=== PATIENT | female | born 1980 | race African-American/Black ===

== ENCOUNTER 2018-04-18 08:57 | Emergency (ER) | payer SELFPAY ==
[2018-04-18] MEDS ORDERED: METHYLPREDNISOLONE 125 MG INJ ONE (09:36)
[2018-04-18] MEDS ORDERED: LEVALBUTEROL 1.25 MG/3 ML NEB ONE (09:37)
--- NOTE | 2018-04-18 10:26 | ER ---
Nurse's Notes [facility] Name: Elena Bustamante Age: 37 yrs Sex: Female : 1980 Arrival Date: 04/18/2018 Time: 09:02 Bed 27 Private MD: Out, [facility] Diagnosis: Asthma Presentation: 04/18 09:14 Presenting complaint: Patient states: asthma exacerbation that began 15 minutes ago ss while at work. Pt reports all of her asthma medications were left at home as she got a new purse and had not transferred them over. Pt states, "I just need a breathing treatment, then I can go back to work.". Transition of care: patient was not received from another setting of care. Onset of symptoms was April 18, 2018. Risk Assessment: Do you want to hurt yourself or someone else? Patient reports no desire to harm self or others. Initial Sepsis Screen: Does the patient meet any 2 criteria? No. Patient's initial sepsis screen is negative. Does the patient have a suspected source of infection? No. Patient's initial sepsis screen is negative. Care prior to arrival: None. 09:14 Method Of Arrival: Ambulatory ss 09:14 Acuity: GREGORY 4 ss Historical: - Allergies: 09:20 Vicodin; ss 09:20 Iodine; ss - Home Meds: 09:20 Meclizine Oral [Active]; Amoxicillin-Pot Clavulanate Oral [Active]; ProAir [Active]; ss Albuterol Nebulizer [Active]; - PMHx: 09:20 Asthma; vertigo; ss - PSHx: 09:20 c section; Tonsillectomy; Adenoids; Tubal ligation; ss - Immunization history:: Adult Immunizations up to date. - Social history:: Smoking status: Patient/guardian denies using tobacco. - Ebola Screening: : Patient denies exposure to infectious person Patient denies travel to an Ebola-affected area in the 21 days before illness onset. - Family history:: not pertinent. - Hospitalizations: : No recent hospitalization is reported. Screenin:14 Abuse screen: Denies threats or abuse. Denies injuries from another. Nutritional ss screening: No deficits noted. Tuberculosis screening: No symptoms or risk factors identified. Never had TB. Fall Risk None identified. Assessment: 09:14 General: Appears in no apparent distress. comfortable, Behavior is calm, cooperative. ss Pain: Denies pain. Neuro: Level of Consciousness is awake, alert, obeys commands, Oriented to person, place, time, situation. Cardiovascular: Heart tones S1 S2 present Capillary refill < 3 seconds is brisk in bilateral fingers Chest pain is denied. Respiratory: Breath sounds are diminished in left posterior lower lobe and right posterior lower lobe Breath sounds with wheezes in right upper lobe and left upper lobe. Respiratory: Reports cough that is non-productive, hacking, persistent since 15 minutes prior to arrival. GI: Patient currently denies abdominal pain, diarrhea, nausea, vomiting. EENT: Nares are clear Oral mucosa is moist. Throat is clear. Derm: Skin is intact, is healthy with good turgor, Skin is dry, Skin is pink, warm \\T\\ dry. normal. Musculoskeletal: Circulation, motion, and sensation intact. Range of motion: intact in all extremities, Swelling absent. 10:24 Reassessment: Patient appears in no apparent distress at this time. Patient and/or ch family updated on plan of care and expected duration. Pain level reassessed. Patient is alert, oriented x 3, equal unlabored respirations, skin warm/dry/pink. Patient states feeling better. Patient states symptoms have improved. General: Appears in no apparent distress. comfortable, Behavior is calm, cooperative, appropriate for age. Respiratory: Airway is patent Respiratory effort is even, unlabored, Breath sounds are clear bilaterally. Vital Signs: 09:20 BP 124 / 95; Pulse 84; Resp 18; Temp 98.9(O); Pulse Ox 100% on R/A; Weight 102.97 kg; Height 5 ft. 6 in. (167.64 cm); Pain 0/10; 10:24 BP 113 / 82; Pulse 78; Resp 14; Temp 98.1; Pulse Ox 100% on R/A; Pain 0/10; ch 09:20 Body Mass Index 36.64 (102.97 kg, 167.64 cm) ED Course: 09:02 Patient arrived in ED. sb2 09:04 Out, of Town is Private Physician. sb2 09:10 Pato Agee MD is Attending Physician. rn 09:14 Patient has correct armband on for positive identification. Bed in low position. Call light in reach. 09:16 Triage completed. ss 09:20 Arm band placed on right wrist. ss 09:36 Domitila Green, RN is Primary Nurse. ss 09:59 EKG done, by electronic warfare technician. reviewed by Pato Agee MD. [facility] 10:21 Primary Nurse role handed off by Domitila Green RN 10:21 Sadie Ortiz, RN is Primary Nurse. 10:37 No provider procedures requiring assistance completed. Patient did not have IV access ss during this emergency room visit. Administered Medications: 09:17 CANCELLED (Duplicate Order): predniSONE 60 mg PO once rn 09:37 Drug: Xopenex (3) 1.25 mg Route: Inhalation; ss 10:25 Follow up: Response: No adverse reaction; Marked relief of symptoms 09:37 Drug: SOLU-Medrol 125 mg Route: IM; Site: right deltoid; ss 10:25 Follow up: Response: No adverse reaction; Marked relief of symptoms Outcome: 10:25 Discharge ordered by . rn 10:37 Discharged to home ambulatory. 10:37 Condition: good 10:37 Discharge instructions given to patient, Instructed on discharge instructions, follow up and referral plans. medication usage, Demonstrated understanding of instructions, follow-up care, medications, Prescriptions given X 1. 10:39 Patient left the ED. ss Signatures: Sadie Ortiz, RUBY BELTRAN Pato Agee MD MD rn Smirch, Shelby, RN RN Whitley Estrada, medical claims assistant EKG Tat1 Shannan Marin sb2
--- NOTE | 2018-04-18 10:26 | EDPHYS ---
Physician Documentation [facility] Name: Elena Bustamante Age: 37 yrs Sex: Female : 1980 Arrival Date: 04/18/2018 Time: 09:02 Bed 27 Private MD: Out, [facility] ED Physician Pato Agee HPI: 04/18 09:25 This 37 yrs old Black Female presents to ER via Ambulatory with complaints of Asthma rn Exacerbation. 09:25 The patient presents to the emergency department with wheezing, the patient was rn reported to have chest congestion, chest tightness, non-productive cough, productive cough. Onset: The symptoms/episode began/occurred 1 week(s) ago. Modifying factors: The symptoms are alleviated by inhaler, the symptoms are aggravated by nothing. Severity of symptoms: At their worst the symptoms were mild in the emergency department the symptoms are unchanged. The patient has experienced similar episodes in the past. Reports recently seen by physician, finished her steroids, still coughing, forgot her inhaler today, came to work, feels chest tightness and reports this is how her asthma feels, + wheezing. . Historical: - Allergies: 09:20 Vicodin; ss 09:20 Iodine; ss - Home Meds: 09:20 Meclizine Oral [Active]; Amoxicillin-Pot Clavulanate Oral [Active]; ProAir [Active]; ss Albuterol Nebulizer [Active]; - PMHx: 09:20 Asthma; vertigo; ss - PSHx: 09:20 c section; Tonsillectomy; Adenoids; Tubal ligation; ss - Immunization history:: Adult Immunizations up to date. - Social history:: Smoking status: Patient/guardian denies using tobacco. - Ebola Screening: : Patient denies exposure to infectious person Patient denies travel to an Ebola-affected area in the 21 days before illness onset. - Family history:: not pertinent. - Hospitalizations: : No recent hospitalization is reported. ROS: 09:25 Constitutional: Negative for fever, chills, and weight loss, Eyes: Negative for injury, rn pain, redness, and discharge, Cardiovascular: Negative for chest pain, palpitations, and edema, Respiratory: Negative for pleuritic chest pain Abdomen/GI: Negative for abdominal pain, nausea, vomiting, diarrhea, and constipation, MS/Extremity: Negative for injury and deformity, Skin: Negative for injury, rash, and discoloration, Neuro: Negative for headache, weakness, numbness, tingling, and seizure. Exam: 09:25 Constitutional: This is a well developed, well nourished patient who is awake, alert, rn + persistent coughing ENT: MMM, no stridor Cardiovascular: Regular rate and rhythm with a normal S1 and S2. No gallops, murmurs, or rubs. No JVD. No pulse deficits. Respiratory: + mild tachypnea with central wheezing with cough, no retractions Skin: Warm, dry with normal turgor. Normal color with no rashes, no lesions, and no evidence of cellulitis. Neuro: Awake and alert, GCS 15, oriented to person, place, time, and situation. Cranial nerves II-XII grossly intact. Motor strength 5/5 in all extremities. Sensory grossly intact. Cerebellar exam normal. Normal gait. Vital Signs: 09:20 BP 124 / 95; Pulse 84; Resp 18; Temp 98.9(O); Pulse Ox 100% on R/A; Weight 102.97 kg; ss Height 5 ft. 6 in. (167.64 cm); Pain 0/10; 10:24 BP 113 / 82; Pulse 78; Resp 14; Temp 98.1; Pulse Ox 100% on R/A; Pain 0/10; ch 09:20 Body Mass Index 36.64 (102.97 kg, 167.64 cm) ss MDM: 09:10 Patient medically screened. rn 10:25 Differential diagnosis: acute asthma, reactive airway, URI. Data reviewed: vital signs, rn nurses notes, EKG, and as a result, I will discharge patient. Counseling: I had a detailed discussion with the patient and/or guardian regarding: the historical points, exam findings, and any diagnostic results supporting the discharge/admit diagnosis, the need for outpatient follow up, to return to the emergency department if symptoms worsen or persist or if there are any questions or concerns that arise at home. Response to treatment: the patient's symptoms have markedly improved after treatment, and as a result, I will discharge patient. Special discussion: I discussed with the patient/guardian in detail that at this point there is no indication for admission to the hospital. It is understood, however, that if the symptoms persist or worsen the patient needs to return immediately for re-evaluation. 04/18 09:17 Order name: EKG; Complete Time: 09:18 rn 04/18 09:17 Order name: EKG - Nurse/Tech; Complete Time: 10:13 rn Administered Medications: :17 CANCELLED (Duplicate Order): predniSONE 60 mg PO once rn 09:37 Drug: Xopenex (3) 1.25 mg Route: Inhalation; ss 10:25 Follow up: Response: No adverse reaction; Marked relief of symptoms 09:37 Drug: SOLU-Medrol 125 mg Route: IM; Site: right deltoid; ss 10:25 Follow up: Response: No adverse reaction; Marked relief of symptoms Disposition: 04/18/18 10:25 Discharged to Home. Impression: Asthma. - Condition is Stable. - Discharge Instructions: Asthma, Acute Bronchospasm. - Prescriptions for Prednisone 20 mg Oral Tablet - take 3 tablet by ORAL route once daily for 5 days; 15 tablet. - Medication Reconciliation Form, Thank You Letter, Antibiotic Education, Prescription Opioid Use, Work release form form. - Follow up: Private Physician; When: As needed; Reason: Recheck today's complaints, Re-evaluation by your physician. - Problem is an acute exacerbation. - Symptoms have improved. Signatures: Pato Agee MD MD rn Smirch, Shelby, RN RN Sadie Ortiz RN Corrections: (The following items were deleted from the chart) : 09:17 predniSONE 60 mg PO once ordered. rn rn 10:39 10:25 04/18/2018 10:25 Discharged to Home. Impression: Asthma. Condition is Stable. ss Forms are Medication Reconciliation Form, Thank You Letter, Antibiotic Education, Prescription Opioid Use. Follow up: Private Physician; When: As needed; Reason: Recheck today's complaints, Re-evaluation by your physician. Problem is an acute exacerbation. Symptoms have improved. rn
--- NOTE | 2018-04-18 12:51 | EKG ---
Test Date: 2018-04-18 Test Time: 09:59:05 Air Battle Manager: RONNIE MEASUREMENT RESULTS: Intervals: Rate: 75 OR: 118 QRSD: 80 QT: 404 QTc: 451 [place]: P: 7 OR: 118 QRS: 76 T: 10 INTERPRETIVE STATEMENTS: Normal sinus rhythm Nonspecific T wave abnormality Abnormal ECG No previous ECG available for comparison Electronically Signed On 04-18-18 12:51:[address] RADIO TECHNICIAN by Jean-Claude Shepherd
== END 2018-04-18 10:39 | disposition home or self-care (01) ==
LOC: ER 08:57
DX: J45.909 Unspecified asthma, uncomplicated (principal); Z79.899 Other long term (current) drug therapy; R94.31 Abnormal electrocardiogram [ECG] [EKG]
CPT/HCPCS: 93005; 96372; 99284; J2930